=== PATIENT | male | born 1950 | race Caucasian/White ===

== ENCOUNTER 2024-08-15 09:57 | Outpatient (CLI) | payer MEDICARE, SELFPAY ==
--- NOTE | ~2024-08-15 | MR_ITS ---
MRI of the thoracic spine Clinical History: Back pain Technique: Axial T2-weighted and gradient images, and sagittal T1-weighted, T2-weighted, and STIR felicia ges were acquired. Findings: There are acute mild to moderate compression fractures of T6 and T7, with diffuse marrow ed carrie and loss of height. No other fracture or subluxation seen. No other bone marrow signal abnormalit y seen in the thoracic spine. No significant disc bulge or herniation seen at any thoracic level. No dawit spinal canal stenosis or cord compression. No significant retropulsion of the aforementioned vertebral bodies with compressio n fracture deformities. No abnormal signal evident in the spinal cord. Paravertebral soft tissues are unremarkable. Impression: Acute compression fractures of T6 and T7, as detailed above. Reviewed, dictated and finalized at location . MANAGEMENT MANAGER Impression: Acute compression fractures of T6 and T7, as detailed above.
== END 2024-08-15 09:58 | disposition home or self-care (01) ==
LOC: GOSHIMG 09:58
DX: S22.060A Wedge compression fracture of T7-T8 vertebra, initial encounter for closed fracture (principal); X58.XXXA Exposure to other specified factors, initial encounter
CPT/HCPCS: 72146